=== PATIENT | male | born 1955 | race Caucasian/White ===

== ENCOUNTER 2017-02-04 03:56 | Emergency (ER) | payer OTHER ==
[2017-02-04 04:14] VITALS: TEMP 98.1
--- NOTE | 2017-02-04 04:15 | EDPHY ---
H & P Stated Complaint: retention Time Seen by Provider: 02/04/17 04:04 HPI/ROS: Chief Complaint: Can't urinate HPI: 61-year-old male with a history of prostate disease has been unable to urinate since 04/24 this morning. He has any urinary retention in the past, last time was in May of this year. He is currently visiting from [facility]. Denies any fevers or chills. No nausea or vomiting. No back pain, numbness or weakness. ROS: 10 point Review of Systems is negative except as noted in the HPI. PMH: BPH, Crohn's disease Social History: No smoking, occasional alcohol, no recreational drug use Family History: non-contributory Physical Exam: Gen: Awake, Alert, uncomfortable appearing HEENT: Nose: no rhinorrhea Eyes: PERRLA, EOMI Mouth: Moist mucosa Neck: Supple, no JVD Abd: Soft, distended, enlarged urinary bladder, no guarding Back: no CVA tenderness, no midline tenderness Ext: no edema, non-tender Skin: no rash Neuro: CN II-XII intact, Sensation grossly intact, Strength 5/5 in bilateral upper and lower extremities - Personal History Current Tetanus/Diphtheria Vaccine: Yes Current Tetanus Diphtheria and Acellular Pertussis (TDAP): Yes - Medical/Surgical History Hx Asthma: No Hx Chronic Respiratory Disease: No Hx Diabetes: No Hx Cardiac Disease: No Hx Renal Disease: No Hx Cirrhosis: No Hx Alcoholism: No Hx HIV/AIDS: No Hx Splenectomy or Spleen Trauma: No Other PMH: prostate, chrons - Social History Smoking Status: Never smoked Constitutional: Initial Vital Signs Temperature (C) 36.7 C 02/04/17 04:04 Heart Rate 86 02/04/17 04:04 Respiratory Rate 18 02/04/17 04:04 Blood Pressure 150/75 H 02/04/17 04:04 O2 Sat (%) 95 02/04/17 04:04 O2 Delivery Mode Room Air Allergies/Adverse Reactions: No Known Allergies Allergy (Unverified 02/04/17 04:03) Home Medications: Medication Instructions Recorded Purinethol 50 mg (*) 02/04/17 Tamsulosin HCl [Flomax] 02/04/17 Medical Decision Making ED Course/Re-evaluation: Bladder scan or shows urinary bladder volume of 760 mL. Phillips catheter placed by nursing staff. Patient had significant relief with this. Urinalysis was sent and shows no evidence of acute urinary tract infection. I have referred the patient to Dr. Carmona, urologist as he is going to be in town for the next couple of weeks. He will return for any concerns. Departure - Departure Disposition: Home, Routine, Self-Care Clinical Impression: Acute retention of urine Condition: Good Instructions: Urinary Retention in Men (ED), Phillips Catheter Placement and Care (ED) Additional Instructions: Follow up with Urology, Dr. Tariq, in 2-3 days for further evaluation. Return to the emergency department for increasing difficulty urinating, fevers, chills, worsening abdominal pain, or any other concerns. Referrals: [facility] [Other] - As per Instructions
[2017-02-04 05:05] LABS: COLOR PALE YELLOW; LEUKOCYTE ESTERASE,URINE NEGATIVE (NEGATIVE); NITRITE,URINE NEGATIVE (NEGATIVE)
[2017-02-04 05:12] LABS: BACTERIA TRACE /hpf (NONE SEEN); MUCUS TRACE /lpf (NONE-1+); RBC,URINE 25-50 /hpf (0-3)
[2017-02-04 05:50] VITALS: BP 135/83; PULSE 75; RESP 16; O2SAT 94
== END 2017-02-04 05:50 | disposition home or self-care (01) ==
PROC: 0T9B70Z Drainage of Bladder with Drainage Device, Via Natural or Artificial Opening (ICD-10-PCS; principal; 2017-02-04)
DX: R33.9 Retention of urine, unspecified (principal)